=== PATIENT | male | born 1990 | race Caucasian/White ===

== ENCOUNTER → 2019-06-10 13:34 | Outpatient (CLI) | payer OTHER, MEDICAID, SELFPAY ==
[2019-06-10 15:14] LABS: Hemoglobin 15.5 g/dL (13.5-17.5); Mean Corpuscular HGB Conc 34.5 % (30-36); Mean Corpuscular Hemoglobin 30.8 PG (26-34); Mean Corpuscular Volume 89.3 fL (80-100); Platelet Count 260 X10^3/uL (150-400); Red Blood Cell Count 5.04 X10^6/uL (4.5-5.9); Red Cell Distribution Width 13.1 % (11.6-14.8); White Blood Cell Count 4.6 X10^3/uL (4.5-11.0)
[2019-06-10 15:28] LABS: Alanine Aminotransferase 22 IU/L (21-72); Albumin 4.6 g/dL (3.5-5.0); Albumin Globulin Ratio 1.5 (1.0-2.8); Alkaline Phosphatase 64 U/L (38-126); Aspartate Aminotransferase 22 IU/L (17-59); Bilirubin Total 0.8 mg/dL (0.2-1.3); Blood Urea Nitrogen 7 mg/dL (9-20); Calcium 9.3 mg/dL (8.4-10.2); Carbon Dioxide 27 mmol/L (22-32); Chloride 102 mmol/L (98-107); Cholesterol 171 mg/dL (140-199); Estimated Glomerular Filt Rate > 60.0 mL/min (>60); Glucose 90 mg/dL (70-100); HDL Cholesterol 38 mg/dL (40-60); HEMOLYSIS < 15 (0-50); LDL Cholesterol Calculated 96 mg/dL (<100); Potassium 4.1 mmol/L (3.4-5.1); Sodium 140 mmol/L (137-145); Total Protein 7.6 g/dL (6.3-8.2); Triglycerides 184 mg/dL (35-150)
[2019-06-10 16:05] LABS: TSH w/ Reflex to FT4 0.51 uIU/mL (0.47-4.68)
[2019-06-10 16:07] LABS: Neutrophils Absolute Manual 2576 /uL (3000-5900); RBC Morphology Normal Morphology; Total Cells Counted 100
[2019-06-10 16:19] LABS: HIV 1 & 2 Ab/Ag 4th Gen Combo NEGATIVE (NEGATIVE)
[2019-06-10 17:36] LABS: Urine Chlamydia NOT DETECTED; Urine N gonorrhoeae NOT DETECTED
== END ==
PROVIDERS: Visit Provider Nurse Practitioner
DX: Z00.00 Encounter for general adult medical examination without abnormal findings (principal); Z11.3 Encounter for screening for infections with a predominantly sexual mode of transmission
CPT/HCPCS: 36415; 80053; 80061; 84443; 85025; 87389; 87491; 87591

== ENCOUNTER → 2019-12-12 10:43 | Outpatient (CLI) | payer OTHER, MEDICAID, SELFPAY ==
[2019-12-12 11:30] LABS: Add Manual Diff / Slide Review NO; Basophils Absolute Auto 0 /uL (0-100); Basophils Percent Auto 0.8 % (0-2); Eosinophils Absolute Auto 200 /uL (0-450); Eosinophils Percent Auto 3.1 % (2-4); Hematocrit 44.8 % (41-53); Hemoglobin 15.5 g/dL (13.5-17.5); Lymphocytes Absolute Auto 1900 /uL (1100-4500); Lymphocytes Percent Auto 33.8 % (25-40); Mean Corpuscular HGB Conc 34.5 % (30-36); Mean Corpuscular Hemoglobin 30.8 PG (26-34); Mean Corpuscular Volume 89.2 fL (80-100); Monocytes Absolute Auto 300 /uL (0-900); Monocytes Percent Auto 5.7 % (3-14); Neutrophils Absolute Auto 3200 /uL (1500-7000); Neutrophils Percent Auto 56.6 % (50-75); Platelet Count 271 X10^3/uL (150-400); Red Blood Cell Count 5.02 X10^6/uL (4.5-5.9); Red Cell Distribution Width 12.8 % (11.6-14.8); White Blood Cell Count 5.6 X10^3/uL (4.5-11.0)
[2019-12-12 11:46] LABS: Alanine Aminotransferase 19 IU/L (<50); Albumin 4.7 g/dL (3.5-5.0); Albumin Globulin Ratio 1.6 (1.0-2.8); Alkaline Phosphatase 70 U/L (38-126); Aspartate Aminotransferase 24 IU/L (17-59); Bilirubin Total 0.6 mg/dL (0.2-1.3); Blood Urea Nitrogen 12 mg/dL (9-20); Calcium 9.7 mg/dL (8.4-10.2); Carbon Dioxide 28 mmol/L (22-32); Chloride 103 mmol/L (98-107); Estimated Glomerular Filt Rate > 60.0 mL/min (>60); Glucose 102 mg/dL (70-100); HEMOLYSIS < 15 (0-50); Potassium 4.5 mmol/L (3.4-5.1); Sodium 141 mmol/L (137-145); Total Protein 7.7 g/dL (6.3-8.2)
[2019-12-12 12:36] LABS: Free T3, Triiodothyronine Free 3.81 pg/mL (2.77-5.27); Free T4, Direct Thyroxine 1.21 ng/dL (0.78-2.19)
[2019-12-12 12:49] LABS: Thyroid Stimulating Hormone 0.37 uIU/mL (0.47-4.68)
== END ==
PROVIDERS: Family Provider Nurse Practitioner Psychiatric/Mental Health; PCP Nurse Practitioner; Visit Provider Nurse Practitioner
DX: F41.8 Other specified anxiety disorders (principal); R53.83 Other fatigue
CPT/HCPCS: 36415; 80053; 84439; 84443; 84481; 85025

== ENCOUNTER → 2020-09-24 13:32 | Outpatient (CLI) | payer OTHER, MEDICAID, SELFPAY ==
[2020-09-24 16:09] LABS: COVID19 -Nasal RAPID Negative (Negative)
== END ==
PROVIDERS: Family Provider Nurse Practitioner Psychiatric/Mental Health; PCP Nurse Practitioner; Visit Provider Physician Assistant
DX: Z11.59 Encounter for screening for other viral diseases (principal)
CPT/HCPCS: 87635

== ENCOUNTER → 2021-02-06 14:42 | Outpatient (CLI) | payer OTHER, MEDICAID, SELFPAY ==
[2021-02-06 15:10] LABS: Add Manual Diff / Slide Review NO; Basophils Absolute Auto 0 /uL (0-100); Basophils Percent Auto 0.9 % (0-2); Eosinophils Absolute Auto 100 /uL (0-450); Hematocrit 41.7 % (41-53); Hemoglobin 14.5 g/dL (13.5-17.5); Lymphocytes Absolute Auto 1800 /uL (1100-4500); Lymphocytes Percent Auto 31.7 % (25-40); Mean Corpuscular HGB Conc 34.8 % (30-36); Mean Corpuscular Hemoglobin 30.8 PG (26-34); Mean Corpuscular Volume 88.6 fL (80-100); Monocytes Absolute Auto 300 /uL (0-900); Monocytes Percent Auto 5.6 % (3-14); Neutrophils Absolute Auto 3400 /uL (1500-7000); Neutrophils Percent Auto 59.8 % (50-75); Platelet Count 218 X10^3/uL (150-400); Red Cell Distribution Width 12.8 % (11.6-14.8); White Blood Cell Count 5.7 X10^3/uL (4.5-11.0)
[2021-02-06 16:17] LABS: Free T3, Triiodothyronine Free 2.97 pg/mL (2.77-5.27); Free T4, Direct Thyroxine 1.02 ng/dL (0.78-2.19)
[2021-02-06 16:31] LABS: Thyroid Stimulating Hormone 0.408 uIU/mL (0.47-4.68)
[2021-02-06 17:09] LABS: Alanine Aminotransferase 16 IU/L (<50); Albumin 4.4 g/dL (3.5-5.0); Albumin Globulin Ratio 1.7 (1.0-2.8); Alkaline Phosphatase 60 U/L (38-126); Aspartate Aminotransferase 25 IU/L (17-59); BUN Creatinine Ratio 15.7 (6-22); Bilirubin Total 0.6 mg/dL (0.2-1.3); Blood Urea Nitrogen 13 mg/dL (9-20); Calcium 9.5 mg/dL (8.4-10.2); Carbon Dioxide 29 mmol/L (22-32); Chloride 105 mmol/L (98-107); Estimated Glomerular Filt Rate > 60.0 mL/min (>60); Globulin 2.6 g/dL (1.7-4.1); Glucose 100 mg/dL (70-100); HEMOLYSIS < 15 (0-50); Potassium 4.6 mmol/L (3.4-5.1); Sodium 139 mmol/L (137-145)
== END ==
PROVIDERS: Family Provider Nurse Practitioner Psychiatric/Mental Health; PCP Nurse Practitioner; Referring Provider Nurse Practitioner; Visit Provider Nurse Practitioner
DX: Z00.00 Encounter for general adult medical examination without abnormal findings (principal); F41.8 Other specified anxiety disorders; G47.19 Other hypersomnia
CPT/HCPCS: 36415; 80053; 84439; 84443; 84481; 85025

== ENCOUNTER → 2021-02-08 16:54 | Outpatient (CLI) | payer OTHER, MEDICAID, SELFPAY ==
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
== END ==
PROVIDERS: Family Provider Nurse Practitioner Psychiatric/Mental Health; PCP Nurse Practitioner; Referring Provider Physician Assistant; Visit Provider Physician Assistant
DX: S52.122A Displaced fracture of head of left radius, initial encounter for closed fracture (principal); M25.512 Pain in left shoulder; M25.522 Pain in left elbow; M25.532 Pain in left wrist; M79.642 Pain in left hand; V19.3XXA Pedal cyclist (driver) (passenger) injured in unspecified nontraffic accident, initial encounter
CPT/HCPCS: 73030; 73080; 73110; 73130

== ENCOUNTER → 2021-06-18 11:33 | Outpatient (CLI) | payer OTHER, MEDICAID, SELFPAY ==
[2021-06-18 16:03] LABS: UR Morphine/Opiate cutoff 300 Negative (Negative); Ur Creatinine Normal (Normal); Ur Specific Gravity Normal (Normal); Urine Amphetamines Negative (Negative); Urine Barbiturates Negative (Negative); Urine Benzodiazepines Negative (Negative); Urine Cocaine Negative (Negative); Urine MDMA Negative (Negative); Urine Methadone Negative (Negative); Urine Methamphetamines Negative (Negative); Urine Oxycodone Negative (Negative); Urine Phencyclidine Negative (Negative); Urine Tetrahydrocannabinol Negative (Negative); Urine Tricyclic Antidepressant Negative (Negative); Urine pH Normal (Normal)
== END ==
PROVIDERS: Family Provider Nurse Practitioner Psychiatric/Mental Health; PCP Nurse Practitioner; Referring Provider Family Medicine Sleep Medicine; Visit Provider Family Medicine Sleep Medicine
DX: G47.00 Insomnia, unspecified (principal); G47.10 Hypersomnia, unspecified; G47.19 Other hypersomnia; G47.30 Sleep apnea, unspecified
CPT/HCPCS: 80305; 95805